=== PATIENT | female | born 1985 | race Hispanic/Latino ===

== ENCOUNTER 2017-06-15 07:59 | Day surgery (SDC) | payer MEDICAID ==
[~2017-06-15 07:59] MED LIST: NACL 0.9% IR ONE
[2017-06-15] MEDS ORDERED: VANCOMYCIN/NS 1 GM/250 ML 1 GM/250 ML BAG IV NR (09:00)
[2017-06-15] MEDS ORDERED: ACD-A 0 ML IV ONE (09:05)
[2017-06-15 09:09] LABS: Basophils % (Auto) 0.5 % (0.0-1.8); Eosinophils % (Auto) 2.9 % (0.0-4.3); Hematocrit 36.4 % (30.3-42.9); Hemoglobin 11.9 gm/dl (10.1-14.3); Mean Corpuscular HGB Conc 33 % (30-34); Mean Corpuscular Hemoglobin 27 pg (28-32); Mean Corpuscular Volume 82 fl (79-97); Platelet Count 279 K/mm3 (140-440); Red Blood Count 4.46 M/mm3 (3.65-5.03); Red Cell Distribution Width 16.1 % (13.2-15.2); White Blood Count 7.9 K/mm3 (4.5-11.0)
[2017-06-15] MEDS ORDERED: PEPCID PO NR (09:15)
[2017-06-15] MEDS ORDERED: LACTATED RINGERS 1,000 ML IV SCH (09:16)
[2017-06-15] MEDS ORDERED: MARCAINE 0.5% 30 ML INFILTRATI ONE (09:21)
[2017-06-15] MEDS ORDERED: DECADRON ONE ×3 (09:21→10:38)
[2017-06-15] MEDS ORDERED: DILAUDID IV PRN (09:32)
--- NOTE | 2017-06-15 09:32 | Anesthesia Day of Surgery ---
Anesthesia Day of Surgery - Day of Surgery Patient Examined: Yes Patient is NPO: Yes
--- NOTE | 2017-06-15 09:32 | Anesthesia Consultation ---
Anesthesia Consult and Med Hx Date of service: 06/15/17 - Airway Anesthetic Teeth Evaluation: Good ROM Head & Neck: Adequate Mental/Hyoid Distance: Adequate Mallampati Class: Class II Intubation Access Assessment: Probably Good - Pulmonary Exam CTA: Yes - Cardiac Exam Cardiac Exam: RRR - Pre-Operative Health Status ASA Pre-Surgery Classification: ASA2 Proposed Anesthetic Plan: General Nerve Block: Pop - Pulmonary Hx Smoking: Yes (STOPPED X 6 WEEKS, 1/2 PPD X 7 YRS, USES VAPE NOW) Hx Sleep Apnea: No (HARVEY PRE SCREEN NEGATIVE) - Cardiovascular System Hx Hypertension: No - Other Systems Hx Cancer: No
[2017-06-15] MEDS ORDERED: VERSED IV NR (10:00)
[2017-06-15] MEDS ORDERED: VERSED IV ONE (10:00)
[2017-06-15] MEDS ORDERED: ZOFRAN IV PRN (10:00)
[2017-06-15] MEDS ORDERED: SUBLIMAZE IV ONE (10:00)
[2017-06-15] MEDS ORDERED: BENADRYL ONE (10:11)
[2017-06-15] MEDS ORDERED: ZOFRAN ONE (10:12)
[2017-06-15] MEDS ORDERED: XYLOCAINE MPF 2% ONE (10:12)
[2017-06-15] MEDS ORDERED: DILAUDID ONE ×2 (10:13→12:17)
[2017-06-15] MEDS ORDERED: DIPRIVAN 10 MG/ML IV ONE (10:13)
[2017-06-15] MEDS ORDERED: NACL 0.9% IR ONE (11:00)
[2017-06-15] MEDS ORDERED: CLEOCIN 600 MG/50 mL 600 MG/50 ML BAG IV NR (11:00)
--- NOTE | 2017-06-15 12:03 | Procedure Note ---
Date of procedure: 06/15/17 Pre-op diagnosis: displaced right bimalleolar ankle fracture Post-op diagnosis: same Procedure: Open reduction internal fixation right bimalleolar ankle fracture The patient was brought to the OR after being given a femoral nerve block, she was placed in the OR table in the supine position following induction and intubation by anesthesia patient was right lower extremity was prepped and draped in the usual sterile manner. A timeout procedure was done to identify the patient and the correct operative site. Next the leg was exsanguinated followed by inflation of the pneumatic tourniquet to 300 mmHg. A lateral incision was made along the distal fibula this is taken down sharply through skin and subcutaneous next the periosteum was entered the fracture site was identified following manipulation of the fracture fragments a large bone clamp was used to hold the reduction next a 6-hole one third semitubular plate was applied with screws of various lengths. Next the medial malleolus fragment was approached using a small curvilinear incision over the medial malleolus again is taken down through skin and subcutaneous care was taken to identify the saphenous vein and this was done and it was retracted out of the operative field. A small incision was made over the distal tibia to expose the fracture site again using manipulation and stabilization with a bone clamp to threaded guidewires were inserted this was followed by placement of 24.0 50 mm length cannulated screws into the medial malleolus fragment AP and lateral view was obtained on the table showed good reduction of the fracture and placement of the hardware. The wound was copiously irrigated and was closed in a standard routine fashion. Dressings were applied as well as a well-padded posterior mold with the ankle in 90 of flexion. She tolerated the procedure there were no complications she was sent to postanesthesia recovery in stable condition Anesthesia: SENA Surgeon: YANELIS NARVAEZ ([employer] event assistant) Condition: stable Disposition: PACU
[2017-06-15] MEDS ORDERED: NORCO 5/325 PO PRN ×2 (12:09→12:58)
[2017-06-15] MEDS ORDERED: BENADRYL IV ONE (13:00)
[2017-06-15] MEDS ORDERED: TORADOL IV PRN (13:00)
[2017-06-15] MEDS ORDERED: PERCOCET 5/325 PO ONE (13:10)
[2017-06-15 14:50] VITALS: BP 110/73
--- NOTE | 2017-06-15 16:01 | XRay Report ---
Right ankle 2 views in the OR. History: ORIF. Findings: 2 orthopedic screws are seen transfixing the medial malleolar fracture. An orthopedic side plate and multiple screws are seen transfixing the lateral malleolar fracture.
== END 2017-06-15 14:41 | disposition home or self-care (01) ==
LOC: OR 07:59
PROVIDERS: ATTEND Orthopaedic Surgery
DX: S82.841A Displaced bimalleolar fracture of right lower leg, initial encounter for closed fracture (principal); Z87.891 Personal history of nicotine dependence; Z88.0 Allergy status to penicillin; X58.XXXA Exposure to other specified factors, initial encounter; Y93.89 Activity, other specified; Y92.89 Other specified places as the place of occurrence of the external cause; Y99.8 Other external cause status
CPT/HCPCS: 27814; 36415; 73600; 84703; 85025; C1713; J1100; J1170; J1200; J1885; J2250; J2405; J2704; J3010; J3370; J7120; 64450

== ENCOUNTER 2017-07-26 09:32 | Outpatient (CLI) | payer MEDICAID ==
--- NOTE | 2017-07-26 10:11 | XRay Report ---
Right ankle 3 views: History: Right ankle pain. Findings: There is internal fixation noted of the right fibular fracture with metallic plate and screws and medial malleolar fracture with metallic screws. Satisfactory alignment of fracture fragments in stable hardware. Impression: Findings as detailed above. Impression:
== END 2017-07-26 09:33 | disposition home or self-care (01) ==
LOC: XRAY 09:32
PROVIDERS: ATTEND Orthopaedic Surgery
DX: M25.571 Pain in right ankle and joints of right foot (principal); S82.401D Unspecified fracture of shaft of right fibula, subsequent encounter for closed fracture with routine healing; S82.51XD Displaced fracture of medial malleolus of right tibia, subsequent encounter for closed fracture with routine healing; X58.XXXD Exposure to other specified factors, subsequent encounter